=== PATIENT | female | born 1955 | race Hispanic/Latino ===

== ENCOUNTER → 2019-01-18 | Outpatient (CLI) | payer OTHER ==
[~2019-01-18] MED LIST: ALLOPURINOL300 MG PO; AMOXICILLIN250 MG PO; ATENOLOL-CHLOR1 EAC1 PO; CYSTEX TABLET1 EACH PO; ELMIRON100 MG PO; GABAPENTIN300 MG PO; LEVAQUIN500 MG PO; METOPROLOL SUCC50 MG PO; METRONIDAZOLE500 MG PO; PROBIOTIC WITH1 EACH PO; RETAINE MGD EY1 EACH; Z.0.AMLODIPINE BESYL PO; Z.0.ATENOLOL100 MG PO; Z.0.BENAZEPRIL HCL40 PO; Z.0.LEVOTHYROXINE25 PO; Z.0.SIMVASTATIN20 MG PO; [UNRECOGNIZED DRUG - OTHER] PO; [UNRECOGNIZED DRUG - OTHER] PO
--- NOTE | 2019-01-18 14:28 | Diagnostic Imaging Report ---
Radiographs of the right shoulder - 3 views HISTORY: Pain COMPARISON: None available. FINDINGS: Bones: No acute displaced fracture. Prior distal clavicle resection. Osseous alignment is within normal limits. Joints: Scattered degenerative change. No osseous erosion. Soft tissues: Metallic surgical screws in the right humeral head. IMPRESSION: Scattered degenerative change. No osseous erosion. Signed by: Dr. Tomer Brown M.D. on 01/18/2019 2:24 PM
== END ==
LOC: RAD 13:36
PROVIDERS: ATTEND Internal Medicine
DX: M25.511 Pain in right shoulder (principal)

== ENCOUNTER 2019-11-16 07:49 | Outpatient (RCR) | payer MEDICARE, BC | END 2019-11-27 | LOC: PT 07:49 | PROVIDERS: ATTEND Specialist | DX: M17.12 Unilateral primary osteoarthritis, left knee (principal); M62.81 Muscle weakness (generalized); M25.562 Pain in left knee | CPT/HCPCS: 97139 ==

== ENCOUNTER 2021-12-15 13:59 | Emergency (ER) | payer MEDICARE, BC ==
[~2021-12-15] VITALS: Ht 152.4 cm; Wt 76.2 kg
[2021-12-15] MEDS ORDERED: SODIUM CHLORIDE 0.9% 1000ML 1,000 ML IV STA (14:31)
[2021-12-15 14:40] LABS: BASOPHILS % 0.3 % (0.0-1.0); EOSINOPHILS # (AUTO) 0.1 (0.0-0.4); EOSINOPHILS % 1.3 % (0.0-6.0); HEMOGLOBIN 15.4 g/dL (12.0-16.0); LYMPHOCYTES # (AUTO) 1.9 (1.0-3.2); LYMPHOCYTES % 30.7 % (18.0-39.1); MEAN CORPUSCULAR HGB CONC 35.8 g/dL (31-35); MEAN CORPUSCULAR VOLUME 92.3 fL (81-99); MONOCYTES # (AUTO) 0.5 (0.2-0.8); MONOCYTES % 8.8 % (4.4-11.3); NEUTROPHILS # (AUTO) 3.5 (2.1-6.9); NEUTROPHILS % 58.4 % (38.7-80.0); PLATELET COUNT 233 x10e3/uL (140-360); RED BLOOD COUNT 4.66 x10e6/uL (3.6-5.1); RED CELL DISTRIBUTION WIDTH 13.3 % (11.7-14.4)
[2021-12-15] MEDS ORDERED: METOPROLOL TARTRATE 25 MG TAB PO NR ×2 (14:45)
[2021-12-15 14:55] LABS: CLARITY,URINE CLEAR (CLEAR); COLOR,URINE YELLOW (YELLOW); LEUKOCYTE ESTERASE ,URINE NEGATIVE (NEGATIVE)
[2021-12-15 14:56] LABS: KETONES,URINE NEGATIVE (NEGATIVE); NITRITE,URINE POSITIVE (NEGATIVE); PROTEIN,URINE DIPSTICK NEGATIVE (NEGATIVE); URINE UROBILINOGEN 0.2 mg/dL (0.2 - 1)
[2021-12-15 14:59] LABS: ALBUMIN 3.7 g/dL (3.5-5.0); ALBUMIN/GLOBULIN RATIO 0.9 (0.8-2.0); CALCIUM 9.2 mg/dL (8.4-10.2); CREATININE, SERUM 0.98 mg/dL (0.57-1.11); MAGNESIUM 1.9 MG/DL (1.3-2.1)
[2021-12-15 15:02] LABS: BACTERIA,URINE FEW /HPF; EPITHELIAL CELLS,URINE MANY /LPF; RBC,URINE 0-5 /HPF (0-5)
[2021-12-15 15:19] LABS: THYROID STIMULATING HORMONE 3.039 uIU/mL (0.350-4.940)
[2021-12-15] MEDS ORDERED: POTASSIUM CHLORIDE 20 MEQ TAB CR PO NR (16:15)
== END 2021-12-15 16:44 | disposition home or self-care (01) ==
LOC: ER 14:05
DX: R00.2 Palpitations (principal); N39.0 Urinary tract infection, site not specified; E87.6 Hypokalemia; E86.0 Dehydration; I10 Essential (primary) hypertension; E78.00 Pure hypercholesterolemia, unspecified; Z85.038 Personal history of other malignant neoplasm of large intestine
CPT/HCPCS: 36415; 71045; 80053; 81001; 82550; 82553; 83735; 84443; 84484; 85025; 87086; 93005; 99284; J7030